=== PATIENT | female | born 1930 | race Caucasian/White ===

== ENCOUNTER 2020-09-08 14:17 | Inpatient (IN) | payer MEDICARE, OTHER ==
[~2020-09-08] VITALS: Ht 165.1 cm; Wt 89.0 kg
[~2020-09-08 14:17] MED LIST: ALTACE10 MG PO; ATIVAN0.5 MG PO; FLONASE ALLER15.8 ML; IBUPROFEN800 MG PO; LASIX20 MG PO; LIDOCAINE 5% P1 EACH TOP; LIPITOR20 MG PO; MIRALAX17 GM PO; NORCO 5-325 TA1 EACH PO; NORVASC5 MG PO; ONDANSETRON ODT4 MG SL; TOPROL XL 50 MG50 MG PO; VITAMIN B-121000 MC1 IM; VITAMIN D250000 UNIT PO; VOLTAREN **OUT50 MG PO; ZOFRAN4 MG PO
[2020-09-08 14:59] LABS: BASOPHIL 0.2 % (0-2); EOSINOPHIL 0 % (0-7); HCT 35.6 % (37.0-47.0); HGB 11.2 g/dl (12.5-16.0); LYMPHOCYTE 3.4 % (15-48); MCH 31.3 pg (25.0-31.0); MCHC 31.5 g/dL (32.0-36.0); MCV 99.4 fL (78.0-100.0); MONOCYTE 4.2 % (0-12); MPV 10.3 fL (6.0-9.5); NEUTROPHIL 90.9 % (41-80); NRBC 0; PLT 313 K/uL (150-400); RBC 3.58 M/uL (4.20-5.40); RDW 13.9 % (11.5-14.0)
[2020-09-08 15:05] LABS: WBC 36.3 K/uL (4.0-10.5)
[2020-09-08 15:10] LABS: ALBUMIN 2.8 g/dL (3.4-5.0); BILIRUBIN - TOTAL 0.6 mg/dL (0.2-1.0); BUN/CREAT RATIO (CALC) 30.8 RATIO; CREATININE 1.17 mg/dL (0.51-0.95); GLOBULIN (CALCULATION) 4.4 g/dL; POTASSIUM 5.6 mmol/L (3.5-5.1); TOTAL PROTEIN 7.2 g/dL (6.4-8.2)
[2020-09-08 16:33] LABS: BILIRUBIN NEGATIVE (NEGATIVE); BLOOD NEGATIVE Ery/uL (NEGATIVE); CLARITY CLEAR (CLEAR); COLOR YELLOW (YELLOW); GLUCOSE (U) NORMAL (NORMAL); LEUKOCYTES NEGATIVE Leu/uL (NEGATIVE); NITRITE NEGATIVE (NEGATIVE); PROTEIN TRACE (LOW) mg/dL (NEGATIVE); SPECIFIC GRAVITY 1.025 (1.001-1.030); UROBILINOGEN 0.2 mg/dL (0.2-1.0)
[2020-09-08 16:43] LABS: BACTERIA TRACE; SQUAMOUS EPITHELIAL CELLS RARE
[2020-09-08 18:05] LABS: CORONAVIRUS 2019 SARS-COV-2 NEGATIVE (NEGATIVE); INFLUENZA A NAA NEGATIVE (NEGATIVE)
[2020-09-09] MEDS ORDERED: TRAZODONE 50MG50 MG PO (05:18)
[2020-09-09] MEDS ORDERED: PROTONIX20 MG PO (05:20)
[2020-09-09] MEDS ORDERED: MICRO-K10 MEQ PO (05:21)
[2020-09-09] MEDS ORDERED: DESVENLAFAXINE50 MG PO (05:22)
[2020-09-09] MEDS ORDERED: CLARITIN10 M2 PO (05:23)
[2020-09-09] MEDS ORDERED: MELATONIN5 M2 PO (05:23)
[2020-09-09 05:51] LABS: BASOPHIL 0.2 % (0-2); EOSINOPHIL 0 % (0-7); HCT 33.5 % (37.0-47.0); HGB 9.8 g/dl (12.5-16.0); LYMPHOCYTE 3.6 % (15-48); MCH 30.1 pg (25.0-31.0); MCHC 29.3 g/dL (32.0-36.0); MCV 102.8 fL (78.0-100.0); MPV 10.5 fL (6.0-9.5); NEUTROPHIL 89.9 % (41-80); NRBC 0; PLT 257 K/uL (150-400); RBC 3.26 M/uL (4.20-5.40); RDW 14.1 % (11.5-14.0); WBC 29.3 K/uL (4.0-10.5)
[2020-09-09 06:16] LABS: ALBUMIN 2.4 g/dL (3.4-5.0); BILIRUBIN - TOTAL 0.4 mg/dL (0.2-1.0); BUN/CREAT RATIO (CALC) 28.6 RATIO; CREATININE 1.33 mg/dL (0.51-0.95); GLOBULIN (CALCULATION) 3.5 g/dL; POTASSIUM 4.6 mmol/L (3.5-5.1); TOTAL PROTEIN 5.9 g/dL (6.4-8.2)
--- NOTE | 2020-09-09 14:48 | NUR ---
PATIENT DISCHARGED VIA WHEELCHAIR ACCOMPANIED BY BOYFRIEND. dISCHARGE INSTRUCTIONS GIVEN TO PATINT VERBALIZED UNDERSTANDING. IV DCD. CALLED ALICIA TO MAKE SURE INSULIN PRESCRIPTION WAS READY FOR PATIENT.
[2020-09-10 06:01] LABS: BASOPHIL 0.1 % (0-2); EOSINOPHIL 0.2 % (0-7); HCT 29.4 % (37.0-47.0); HGB 9.2 g/dl (12.5-16.0); LYMPHOCYTE 5.5 % (15-48); MCH 31.1 pg (25.0-31.0); MCHC 31.3 g/dL (32.0-36.0); MCV 99.3 fL (78.0-100.0); MPV 10.8 fL (6.0-9.5); NEUTROPHIL 85.6 % (41-80); NRBC 0; PLT 201 K/uL (150-400); RBC 2.96 M/uL (4.20-5.40); RDW 14.1 % (11.5-14.0); WBC 21.4 K/uL (4.0-10.5)
[2020-09-10 06:28] LABS: BUN/CREAT RATIO (CALC) 25.4 RATIO; CREATININE 1.93 mg/dL (0.51-0.95); POTASSIUM 4.6 mmol/L (3.5-5.1)
[2020-09-11 07:05] LABS: BASOPHIL 0.2 % (0-2); EOSINOPHIL 0.9 % (0-7); HCT 32.3 % (37.0-47.0); LYMPHOCYTE 7.7 % (15-48); MCH 30.6 pg (25.0-31.0); MCV 98.8 fL (78.0-100.0); MONOCYTE 6.3 % (0-12); MPV 10.7 fL (6.0-9.5); NRBC 0; PLT 264 K/uL (150-400); RBC 3.27 M/uL (4.20-5.40); RDW 13.9 % (11.5-14.0); WBC 15.3 K/uL (4.0-10.5)
[2020-09-11 07:25] LABS: BUN/CREAT RATIO (CALC) 23.8 RATIO; CREATININE 1.81 mg/dL (0.51-0.95); MAGNESIUM 1.7 mg/dL (1.8-2.4); POTASSIUM 4.1 mmol/L (3.5-5.1)
[2020-09-12 05:50] LABS: HCT 32.4 % (37.0-47.0); HGB 10.1 g/dl (12.5-16.0); MCH 30.7 pg (25.0-31.0); MCHC 31.2 g/dL (32.0-36.0); MCV 98.5 fL (78.0-100.0); MPV 10.3 fL (6.0-9.5); RBC 3.29 M/uL (4.20-5.40); RDW 13.8 % (11.5-14.0); WBC 13.5 K/uL (4.0-10.5)
[2020-09-12 06:20] LABS: BUN/CREAT RATIO (CALC) 25.7 RATIO; CREATININE 1.4 mg/dL (0.51-0.95); POTASSIUM 3.7 mmol/L (3.5-5.1)
--- NOTE | 2020-09-12 10:40 | NUR ---
09/12/20 Kishore Krueger has accepted Ms. Dent when she is ready for discharge. Her daughter, Radha Wright, accepted the placement. Kirby, [employer] MANAGER reports patient to meet criteria for EMS transport. - Report given to Mr. Ga. - When pt is ready for discharge, please call report to: [phone] and fax DS to: [phone].
[2020-09-14 05:59] LABS: HCT 32.5 % (37.0-47.0); HGB 10.3 g/dl (12.5-16.0); MCH 30.7 pg (25.0-31.0); MCHC 31.7 g/dL (32.0-36.0); MPV 9.9 fL (6.0-9.5); RBC 3.35 M/uL (4.20-5.40); RDW 13.7 % (11.5-14.0); WBC 16.2 K/uL (4.0-10.5)
[2020-09-14 06:08] LABS: BUN/CREAT RATIO (CALC) 23.1 RATIO; CREATININE 1.04 mg/dL (0.51-0.95); POTASSIUM 3.3 mmol/L (3.5-5.1)
[2020-09-14] MEDS ORDERED: ELIQUIS2.5 MG PO (12:05)
[2020-09-14] MEDS ORDERED: ZYVOX600 MG PO (12:05)
[2020-09-14] MEDS ORDERED: ROCEPHIN 22 GM/50 ML IV (12:05)
[2020-09-14] MEDS ORDERED: LIPITOR20 MG PO (12:05)
[2020-09-14] MEDS ORDERED: LOPRESSOR25 MG PO (12:05)
--- NOTE | 2020-09-14 13:35 | NUR ---
09/14 Fransico Portillo, was informed. A report was given to ROSEMARY Morales RN.
--- NOTE | 2020-09-14 16:53 | NUR ---
1625 MIDLINE WAS ORDERED FOR PT PRIOR TO BEING DISCHARGED TO A [facility]. PROCEDURE EXPLAINED TO PATIENT. PT PREPPED AND DRAPED IN STERILE FASHION. THE PT'S LEFT ARM BASILIC VEIN WAS VISUALIZED USING THE SITE RITE 6 ULTRA SOUND. A 21 GA NEEDLE WAS USED. GOOD BLOOD RETURN WAS NOTED. THE GUIDE WIRETHREADED EASILY. THE NEEDLE WAS REMOVED AND THE MIDLINE CATHETER WAS PLACED OVER THE WIRE. THE WIRE WAS SHEATH WERE REMOVED. GOOD BLOOD RRTURN WAS NOTED. A CONNECTOR WAS FLUSHED AND PLACED OVER THE END OF THE CATHETER. A STAT LOCK WAS PLACED ON THE CATHETER AND A STERILE BIOPATCH WAS ALSO PLACED ON THE INSERTION SITE. A STERILE TEGADERM WAS PLACED OVER THE MIDLINE CATHETER. PT TOLERATED WELL. PT HAS A 20 GA 10CM POWERGLIDE MIDLINE CATHETER. GOOD FPR 29 DAYS. THIS IS NOT A CENTRAL LINE. REPORT WAS GIVEN TO LISY ROBERTO R.N.
--- NOTE | 2020-09-14 19:16 | NUR ---
181 PATIENT TRANSFERRED BY EMS TO [facility]. REPORT GIVEN TO BRUNO. IV DCD, CASTREJON DCD, MIDLINE PLACED FOR IV MEDS AT [facility].
== END 2020-09-14 18:15 | DRG 871 ==
LOC: FER 14:17 → FTCU 17:10 → FICU 17:10 → FTCU 09-12 09:04
PROVIDERS: Hospitalist; Nurse Practitioner Family; ADMIT Allergy & Immunology Allergy
PROC: 3E033XZ Introduction of Vasopressor into Peripheral Vein, Percutaneous Approach (ICD-10-PCS; 2020-09-08)
PROC: 05HC33Z Insertion of Infusion Device into Left Basilic Vein, Percutaneous Approach (ICD-10-PCS; principal; 2020-09-14)
DX: A40.8 Other streptococcal sepsis (principal); I21.A1 Myocardial infarction type 2; R65.21 Severe sepsis with septic shock; J96.01 Acute respiratory failure with hypoxia; I50.21 Acute systolic (congestive) heart failure; J15.4 Pneumonia due to other streptococci; E87.1 Hypo-osmolality and hyponatremia; L03.115 Cellulitis of right lower limb; N17.9 Acute kidney failure, unspecified; Z66 Do not resuscitate; I95.9 Hypotension, unspecified; E78.5 Hyperlipidemia, unspecified; Z20.822 Contact with and (suspected) exposure to COVID-19; E87.5 Hyperkalemia; I48.91 Unspecified atrial fibrillation; F32.9 Major depressive disorder, single episode, unspecified; F41.9 Anxiety disorder, unspecified; E55.9 Vitamin D deficiency, unspecified; I11.0 Hypertensive heart disease with heart failure; K21.9 Gastro-esophageal reflux disease without esophagitis; E53.8 Deficiency of other specified B group vitamins; Z79.899 Other long term (current) drug therapy; Z90.49 Acquired absence of other specified parts of digestive tract; Z98.890 Other specified postprocedural states; Z86.16 Personal history of COVID-19
CPT/HCPCS: 36415; 36600; 71045; 71250; 71275; 74018; 80048; 80053; 81001; 82803; 82962; 83605; 83735; 83880; 84145; 84484; 85025; 86140; 87040; 87077; 87186; 92526; 93005; 93970; 94640; 94667; 94668; 97110; 97116; 97162; 97166; 97530; 97530-GP; 97535; C1751; C9113; J0696; J1650; J1940; J2020; J2060; J2270; J2405; J2543; J3370; J7050; J7120; Q9967; U0002